=== PATIENT | female | born 1970 | race Hispanic/Latino ===

== ENCOUNTER 2018-03-04 08:49 | Day surgery (SDC) | payer BC ==
[2018-03-03 15:00] VITALS: BP 103/60
[2018-03-03 15:02] LABS: EOSINOPHILS % (AUTO) 2.9 % (0.0-8.0); HEMATOCRIT 41.5 % (36-48); LYMPHOCYTES % (AUTO) 24.8 % (21.0-51.0); MEAN CORPUSCULAR HGB CONC 33.6 g/dL (32.0-36.0); MEAN CORPUSCULAR VOLUME 83.3 fL (79-99); MONOCYTES % (AUTO) 4.4 % (3.0-13.0); NEUTROPHILS % (AUTO) 66.9 % (40.0-77.0); PLATELET COUNT (AUTO) 349 K/uL (130-400); RED BLOOD CELL COUNT(AUTO) 4.98 MIL/uL (4.00-5.50); RED CELL DISTRIBUTION WIDTH 14.4 % (11.0-15.5); WHITE BLOOD COUNT (AUTO) 13.2 K/uL (4.8-10.8)
[2018-03-03 15:11] LABS: CREATININE 0.7 mg/dL (0.5-1.5); POTASSIUM 4.3 mmol/L (3.5-5.1)
[~2018-03-04] VITALS: Ht 154.9 cm; Wt 80.2 kg
[2018-03-04] VITALS (14 sets, daily range): BP systolic 100–124; BP diastolic 56–75
[~2018-03-04 08:49] MED LIST: LEVO25TA54 PO
[2018-03-04] MEDS ORDERED: LACTATED RINGERS 1000ML 1,000 ML IV ONE (09:22)
[2018-03-04] MEDS ORDERED: EPINEPHRINE 1 MG/ML 30ML VIAL IJ ONE (11:55)
[2018-03-04] MEDS ORDERED: LIDOCAINE PF 2% 5ML ABBOJECT ONE (11:59)
[2018-03-04] MEDS ORDERED: DEXAMETHASONE SOD PHOSPHATE 10MG/ML 1ML VIAL ONE (11:59)
[2018-03-04] MEDS ORDERED: ONDANSETRON HCL 4 MG/2 ML VIAL ONE (11:59)
[2018-03-04] MEDS ORDERED: ESMOLOL HCL 10 MG/ML 10 ML VIAL ONE (11:59)
[2018-03-04] MEDS ORDERED: LIDOCAINE HCL-MPF 1% 5ML AMP IJ ONE (11:59)
[2018-03-04] MEDS ORDERED: PROPOFOL 10 MG/ML 20ML VIAL IV ONE (12:00)
[2018-03-04] MEDS ORDERED: ROCURONIUM 10MG/1ML SYR 10 MG/ML ML ONE (12:01)
[2018-03-04] MEDS ORDERED: ROPIVACAINE 0.5% 5MG/ML 30ML IJ ONE (12:05)
[2018-03-04] MEDS ORDERED: CEFAZOLIN SODIUM 1 GM VIAL ONE (12:37)
[2018-03-04] MEDS ORDERED: FENTANYL CITRATE PF 50 MCG/1 ML 2ML VIAL ONE (13:22)
[2018-03-04] MEDS ORDERED: GLYCOPYRROLATE 1 MG/5 ML SYRINGE ONE (13:31)
[2018-03-04] MEDS ORDERED: NEOSTIGMINE 5MG/5ML SYR IV ONE (13:31)
[2018-03-04] MEDS ORDERED: PHENYLEPHRINE HCL 10 MG/ML 1ML VIAL IV ONE (14:05)
[2018-03-04] MEDS ORDERED: CEPH500B PO (15:13)
[2018-03-04] MEDS ORDERED: HYDR-4457 PO (15:13)
[2018-03-04] MEDS ORDERED: KETOROLAC TROMETHAMINE 30MG/ML ONE (15:30)
== END 2018-03-04 17:05 | disposition home or self-care (01) ==
LOC: DAH 08:49 → SUH 08:49
PROVIDERS: ATTEND Orthopaedic Surgery
DX: M75.122 Complete rotator cuff tear or rupture of left shoulder, not specified as traumatic (principal); M19.012 Primary osteoarthritis, left shoulder; M75.42 Impingement syndrome of left shoulder; G89.29 Other chronic pain; M25.812 Other specified joint disorders, left shoulder; E03.9 Hypothyroidism, unspecified; M75.52 Bursitis of left shoulder; Z79.899 Other long term (current) drug therapy; Z90.710 Acquired absence of both cervix and uterus; Z98.890 Other specified postprocedural states
CPT/HCPCS: 29822; 29824; 29826; 29827; 36415; 64415; 80048; 85025; A4649 ×5; A4930 ×2; A6204; C1763; G0168; J0171; J0690; J1100; J1885; J2001; J2370; J2405; J2704; J2710; J2795; J3010; J3490 ×3; J7030; J7120